=== PATIENT | male | born 1985 | race Caucasian/White ===

== ENCOUNTER → 2019-04-26 | Outpatient (CLI) | payer OTHER ==
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
== END | disposition home or self-care (01) ==
LOC: CT 11:48
PROVIDERS: ATTEND Preventive Medicine Occupational Medicine
DX: S01.80XA Unspecified open wound of other part of head, initial encounter (principal); W22.8XXA Striking against or struck by other objects, initial encounter; Y93.89 Activity, other specified; Y92.89 Other specified places as the place of occurrence of the external cause; Y99.8 Other external cause status
CPT/HCPCS: 70450

== ENCOUNTER → 2020-02-22 | Outpatient (CLI) | payer OTHER ==
[~2020-02-22] MED LIST: DOCU-109 PO; HYDR-3164 PO; ONDA8TAB9 PO
== END | disposition home or self-care (01) ==
LOC: LAB 14:33
PROVIDERS: ATTEND Orthopaedic Surgery Sports Medicine
DX: Z01.812 Encounter for preprocedural laboratory examination (principal); Z11.59 Encounter for screening for other viral diseases; G47.21 Circadian rhythm sleep disorder, delayed sleep phase type
CPT/HCPCS: 36415; 87635

== ENCOUNTER 2020-02-26 06:25 | Day surgery (SDC) | payer OTHER ==
[2020-02-26] MEDS ORDERED: IV RINGERS,LACTATED 1000ML 1,000 ML IV SCH (07:00)
[2020-02-26] MEDS ORDERED: BUPIVACAINE MPF 0.5% 30 ML VIAL. ONE (07:14)
[2020-02-26] MEDS ORDERED: LIDOCAINE 1% PF 30 ML VIAL. ONE (07:14)
[2020-02-26] MEDS ORDERED: SEVOFLURANE 31 TO 60 MINUTES. IH ONE (07:25)
[2020-02-26] MEDS ORDERED: MIDAZOLAM HCL/PF 2 MG/2 ML VIAL. ONE (07:26)
[2020-02-26] MEDS ORDERED: PROPOFOL 10 MG/ML (20ML) VIAL. IV ONE (07:26)
[2020-02-26] MEDS ORDERED: ONDANSETRON PF 4 MG/2 ML VIAL. ONE (07:26)
[2020-02-26] MEDS ORDERED: LIDOCAINE 2% PF 5 ML VIAL. ONE (07:26)
[2020-02-26] MEDS ORDERED: fentaNYL PF VIAL 100 MCG/2 ML VIAL ONE (07:26)
[2020-02-26] MEDS ORDERED: DEXAMETHASONE SOD PHOS 4 MG/ML VIAL ONE (07:26)
[2020-02-26] MEDS ORDERED: KETOROLAC 30 MG/ML VIAL. ONE (07:26)
--- NOTE | 2020-02-26 07:42 | DISCH ---
DISCHARGE INSTRUCTIONS Condition on Discharge Condition on Discharge: Stable Activity After Discharge Activity Instructions for Disc: Other, see below Other activity instructions: keep elevated wiggle fingers Bathing Instructions: Shower-keep dressing dry Weight Bearing Status after Di: As tolerated Diet after Discharge Diet after Discharge: Regular Wound Incision Care Wound/Incision Care: Ice to area for comfort, Keep wound elevated, Change dressing Other wound/incision instructi: change dressing after [address] after DC Call your doctor for: Concerns you may have Follow-Up Follow up with: [facility] in 2 wks WILFREDO HAHN II, MD February 26, 2020 07:42
--- NOTE | 2020-02-26 08:22 | PDOC4 ---
Operative Note Operative Note Date of procedure: 02/26/2020 Surgeon: Zackary Hahn An/Ssn 2 4 Operator: Tato Mackey Preoperative diagnosis: Right carpal tunnel syndrome Postoperative diagnosis: Same Procedure performed: Open right carpal tunnel release Anesthesia: General Complications: None Blood loss: 2 mL Reason for procedure: Patient is a very pleasant 34-year-old with persistent carpal tunnel syndrome, electromyographically proven. He had tried and failed conservative therapies including anti-inflammatories, wrist splint, and an injection. We had a discussion of the risks, benefits and alternatives to carpal tunnel release and he wished to proceed. Description of procedure: Patient was greeted in the preoperative area by myself or the correct extremity was verified and marked. He was taken to the operative suite, antibiotics were started as he was brought back. Once in the operating room, he was transferred gently supine to the operating room table and secured to the bed with all pressure points padded after successful induction of a general anesthetic. The hand board was attached to the operating room table. Chlorhexidine pre-scrub was accomplished. Nonsterile tourniquet was secured in place to his right upper arm. Right upper extremity was prepped and draped in the usual sterile fashion we conducted our standard preoperative timeout. After this, the extremity was exsanguinated with an Esmarch and tourniquet insufflated to 250 mmHg. I then incised skin with a scalpel through a longitudinal palmar crease overlying his carpal tunnel ligament. I then spread the subcutaneous tissue with a curved small hemostat. Bipolar cautery was used for hemostasis. I then placed my self-retaining retractor and incised the palmar fascia in line with the skin incision with a scalpel. Identified his transverse carpal ligament and released sharply with a scalpel. I then positioned a Ragnell retractor at the distal aspect of the incision, spread above and below small remaining portion of the ligament and releases with tenotomy's. I then repeated this maneuver in an ulnar directed fashion to release the distal antebrachial fascia as well. After this, use the tip of the tenotomies to palpate along the course of the nerve to ensure that accomplished a complete release. The wound was then irrigated out with sterile fluid. Simple interrupted 3-0 nylon was use d to close the wound. All counts correct x2 prior to wound closure. A local anesthetic mixture was infiltrated into the sherrill-incisional soft tissues. The arm and hand were cleansed and dried and a sterile soft bulky dressing was applied. Patient tolerated surgery well. No complications. At the conclusion, he was awakened and transferred gently supine to the hospital bed and taken to the PACU in stable and extubated condition. Postoperative plan is to discharge him home, activity restrictions were discussed with he and his and given in written form. I will see him back in 2 weeks, sooner should a problem arise. Procedure was conducted with loupe magnification. ZACKARY HAHN II, MD February 26, 2020 08:22
[2020-02-26] MEDS ORDERED: ONDA8TAB9 PO (08:31)
[2020-02-26] MEDS ORDERED: DOCU-109 PO (08:32)
[2020-02-26] MEDS ORDERED: HYDR-3164 PO (08:33)
[2020-02-26] MEDS ORDERED: HYDROcodone/APAP 5/325MG 1 TAB TABLET PO ONE (08:45)
[2020-02-26 08:49] VITALS: BP 132/77
== END 2020-02-26 09:17 | disposition home or self-care (01) ==
LOC: SURG 06:25
PROVIDERS: ATTEND Orthopaedic Surgery Sports Medicine
DX: G56.01 Carpal tunnel syndrome, right upper limb (principal); E66.9 Obesity, unspecified; Z68.31 Body mass index [BMI] 31.0-31.9, adult; Z87.891 Personal history of nicotine dependence
CPT/HCPCS: 64721; A7015; J0696; J1100; J1885; J2250; J2405; J2704; J3010; J3490; J7120